=== PATIENT | male | born 1945 | race Caucasian/White ===

== ENCOUNTER → 2020-06-08 | Outpatient (CLI) | payer MEDICARE ==
[~2020-06-08] MED LIST: AMBIEN 5 MG TABL5 M1 PO; ASPIR 8181 MG PO; BENTYL10 MG PO; DOXYCYCLINE 10100 MG PO; GABAPENTIN 100100 MG PO; LEVAQUIN 750 M750 MG PO; LIORESAL 10 MG10 MG PO; LIPITOR10 MG PO; MULTI VITAMIN1 EACH PO; NEURONTIN 300300 M1 PO; NOHOMEMEDICATIONS; NORCO 5-325 TA1 EACH PO; PEPCID20 MG PO; TYLENOL325 MG PO; VIMPAT100 MG PO
== END ==
LOC: M.MRI 13:42
PROVIDERS: ATTEND Family Medicine
DX: M50.122 Cervical disc disorder at C5-C6 level with radiculopathy (principal); G89.29 Other chronic pain; M48.02 Spinal stenosis, cervical region